=== PATIENT | female | born 1995 | race Caucasian/White ===

== ENCOUNTER 2019-08-23 18:33 | Emergency (ER) | payer BC ==
[2019-08-23] MEDS ORDERED: Zofran 4 MG/2 ML VIAL ONE (19:29)
[2019-08-23] MEDS ORDERED: Hydromorphone 1 mg/ml Ampule ONE ×4 (19:29→21:54)
[2019-08-23] MEDS ORDERED: Zofran 4 MG/2 ML VIAL IV ONE (19:30)
[2019-08-23] MEDS ORDERED: Hydromorphone 1 mg/ml Ampule IV ONE ×4 (19:30→21:53)
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
[2019-08-23 20:30] LABS: BASOPHIL % 0.4 % (0.0-0.4); Basophil (Absolute #) 0.03 (0-0.4); Eosinophil % 0.5 % (0.00-5.0); Eosinophil (Absolute #) 0.04 (0-0.5); Hematocrit 41.2 % (35-47); Hemoglobin 13.9 gm/dl (12.0-16.0); Lymphocyte (Absolute #) 1.87 (1.0-4.6); Mean Cell Volume 94.9 fl (78-100); Mean Corpuscular Hgb Concent. 33.7 g/dl (32-36); Mean Platelet Volume 10.6 fl (7.5-11.0); Monocyte (Absolute #) 0.66 (0.0-1.3); Monocytes % 7.8 % (0.0-12.0); Neutrophil % 69.3 % (36.0-66.0); Platelet Count 286 K/mm3 (150-450); Red Blood Count 4.34 M/mm3 (4.1-5.4); Red Cell Distribution Width 13.2 % (11.5-14.0); White Blood Count 8.5 K/mm3 (4.0-10.5)
[2019-08-23] MEDS ORDERED: Sodium Chloride 0.9% 1000 ML 1,000 ML IV SCH (20:30)
[2019-08-23] MEDS ORDERED: Sodium Chloride 0.9% 1000 ML 1,000 ML ONE (20:36)
[2019-08-23 20:43] LABS: ALKALINE PHOSPHATASE 63 U/L (38-126); AMYLASE 81 U/L (30-110); ANION GAP 13.4 MEQ/L (5-15); BLOOD UREA NITROGEN 8 mg/dL (7-17); CHLORIDE 108 mmol/L (98-107); Calcium 9.4 mg/dL (8.4-10.2); Carbon Dioxide 25 mmol/L (22-30); Creatinine 1 0.78 mg/dL (0.52-1.04); Glucose 100 mg/dL (74-106); LIPASE 138 U/L (23-300); Potassium 3.6 mmol/L (3.5-5.1); SGOT/AST 28 U/L (14-36); SGPT/ALT 13 U/L (0-35); SODIUM 143 mmol/L (137-145); Total Protein 8.2 g/dL (6.3-8.2)
[2019-08-23 21:59] VITALS: BP 133/87; PULSE 76; O2SAT 99
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
== END 2019-08-23 22:04 | disposition short-term general hospital (02) ==
LOC: ED 18:33
DX: S82.52XA Displaced fracture of medial malleolus of left tibia, initial encounter for closed fracture (principal); S82.832A Other fracture of upper and lower end of left fibula, initial encounter for closed fracture; V86.56XA Driver of dirt bike or motor/cross bike injured in nontraffic accident, initial encounter; S80.212A Abrasion, left knee, initial encounter; M25.552 Pain in left hip; M79.632 Pain in left forearm
CPT/HCPCS: 29515; 36000; 36415; 73090; 73502; 73562; 73610; 80053; 81025; 82150; 83690; 85025; 96374; 96375; 96376; 99285; J1170; J2405